=== PATIENT | female | born 1985 | race Caucasian/White ===

== ENCOUNTER 2021-01-10 20:44 | Emergency (ER) | payer OTHER ==
[~2021-01-10 20:44] MED LIST: BENTYL 20MG TAB20 MG PO; PROVERA10 MG PO; ZOFRAN ODT 4 MG4 MG PO
== END 2021-01-11 01:45 | disposition left against medical advice (07) ==
LOC: ER1 20:44
DX: Z53.21 Procedure and treatment not carried out due to patient leaving prior to being seen by health care provider (principal)
CPT/HCPCS: 93005

== ENCOUNTER 2021-06-27 14:10 | Emergency (ER) | payer OTHER | END 2021-06-27 16:00 | disposition home or self-care (01) | LOC: ER1 14:10 | DX: S50.01XA Contusion of right elbow, initial encounter (principal); S40.011A Contusion of right shoulder, initial encounter; F17.200 Nicotine dependence, unspecified, uncomplicated; Z88.2 Allergy status to sulfonamides; W19.XXXA Unspecified fall, initial encounter | CPT/HCPCS: 73030; 73080; 99283 ==

== ENCOUNTER 2021-11-08 21:05 | Emergency (ER) | payer OTHER | END 2021-11-09 00:25 | disposition left against medical advice (07) | LOC: ER1 21:05 | DX: M25.562 Pain in left knee (principal); Z88.1 Allergy status to other antibiotic agents; X50.9XXA Other and unspecified overexertion or strenuous movements or postures, initial encounter | CPT/HCPCS: 73564; 99281 ==

== ENCOUNTER → 2022-01-08 | Outpatient (CLI) | payer OTHER | LOC: LAB 10:58 | DX: Z20.822 Contact with and (suspected) exposure to COVID-19 (principal); S82.042A Displaced comminuted fracture of left patella, initial encounter for closed fracture | CPT/HCPCS: U0002 ==